=== PATIENT | female | born 1975 | race Caucasian/White ===

== ENCOUNTER → 2016-12-06 | Outpatient (CLI) | payer BC | LOC: BRMIMAGING 07:44 | DX: Z12.31 Encounter for screening mammogram for malignant neoplasm of breast (principal) | CPT/HCPCS: G0202 ==

== ENCOUNTER → 2018-04-15 | Outpatient (CLI) | payer BC | LOC: BRMIMAGING 11:32 | DX: Z12.31 Encounter for screening mammogram for malignant neoplasm of breast (principal) ==

== ENCOUNTER → 2018-04-21 | Outpatient (CLI) | payer BC | LOC: CIMAGING 13:24 | DX: R92.0 Mammographic microcalcification found on diagnostic imaging of breast (principal) ==

== ENCOUNTER → 2018-11-07 | Outpatient (CLI) | payer BC | LOC: BRMIMAGING 12:40 | DX: R92.0 Mammographic microcalcification found on diagnostic imaging of breast (principal) ==